=== PATIENT | male | born 1970 | race Caucasian/White ===

== ENCOUNTER 2019-09-01 00:59 | Inpatient (IN) | payer OTHER ==
[~2019-09-01] VITALS: Ht 172.7 cm; Wt 72.6 kg
--- NOTE | 2019-09-01 01:38 | NUR ---
ERMD AT BEDSIDE FOR HX AND PHYSICAL
[2019-09-01] MEDS ORDERED: MECLIZINE HCL 25 MG TABLET PO ONE (02:00)
[2019-09-01] MEDS ORDERED: MECLIZINE HCL 25 MG TABLET ONE (02:12)
[2019-09-01 02:17] LABS: BASOPHILS % (AUTO) 0.6 % (0.0-2.0); EOSINOPHILS # (AUTO) 0.1 K/uL (0.0-0.7); EOSINOPHILS % (AUTO) 1.5 % (0.0-7.0); HEMATOCRIT 45.6 % (36.7-47.1); HEMOGLOBIN 15.9 g/dL (12.5-16.3); LYMPHOCYTES # (AUTO) 0.9 K/uL (20.0-40.0); LYMPHOCYTES % (AUTO) 15.2 % (20.5-51.5); MEAN CORPUSCULAR HEMOGLOBIN 31.4 uug (23.8-33.4); MEAN CORPUSCULAR HGB CONC 35 g/dL (32.5-36.3); MEAN CORPUSCULAR VOLUME 90.3 fL (73.0-96.2); MONOCYTES # (AUTO) 0.7 K/uL (2.0-10.0); MONOCYTES % (AUTO) 11.8 % (0.0-11.0); NEUTROPHILS # (AUTO) 4.3 K/uL (1.8-8.9); NEUTROPHILS % (AUTO) 70.9 % (38.5-71.5); PLATELET COUNT (AUTO) 218 K/uL (152-348); RED BLOOD CELL COUNT(AUTO) 5.05 MIL/uL (4.06-5.63); WHITE BLOOD COUNT (AUTO) 6.1 K/uL (3.6-10.2)
[2019-09-01 02:21] LABS: CREATININE 0.8 mg/dL (0.6-1.3); POTASSIUM 3.8 mmol/L (3.5-5.1)
--- NOTE | 2019-09-01 02:25 | NUR ---
PT BROUGHT TO CT VIA [facility] BY [employer]ODUCTION [employer]NER
[2019-09-01 02:27] LABS: BILIRUBIN,DIRECT 0.1 mg/dL (0.0-0.2); BILIRUBIN,TOTAL 0.4 mg/dL (0.2-1.0); TOTAL PROTEIN, SERUM 7.3 g/dL (6.4-8.2)
--- NOTE | 2019-09-01 02:55 | NUR ---
NOTED ATAXIC GAIT TOWARDS RESTROOM FALL PRECAUTIONS NOTED
[2019-09-01 03:05] LABS: *BILIRUBIN,URIN NEGATIVE (NEGATIVE); *BLOOD, URINE 1+ (NEGATIVE); *CLARITY,URINE CLEAR (CLEAR); *COLOR,URINE YELLOW (YELLOW); *KETONES,URINE NEGATIVE (NEGATIVE); *UROBILINOGEN,URINE 0.2 E.U./dl (NORMAL); LEUKOCYTE ESTERASE ,URINE NEGATIVE (NEGATIVE); NITRITE, URINE NEGATIVE (NEGATIVE); UGLUCOSE NEGATIVE (NEGATIVE)
[2019-09-01 03:26] LABS: *AMPHETAMINE, URINE NEGATIVE (NEGATIVE); *BARBITURATE, URINE NEGATIVE (NEGATIVE); *CANNABINOID, URINE NEGATIVE (NEGATIVE); *COCCAINE, URINE NEGATIVE (NEGATIVE); *OPIATE, URINE NEGATIVE (NEGATIVE); *PHENCYCLIDINE SCREEN,URINE NEGATIVE (NEGATIVE)
[2019-09-01 03:28] LABS: RBC,URINE 20-50 /HPF (0-3)
--- NOTE | 2019-09-01 03:28 | NUR ---
kinsey(insurance) on the phone requesting clinicals and facesheet FAXED TO : [phone] states ok with verbal authorization
[2019-09-01 03:29] LABS: BACTERIA,URINE FEW /HPF (NONE SEEN); MUCUS,URINE MODERATE /LPF (0-FEW); SQUAMOUS EPITHELIAL CELL,UR FEW /HPF (NONE SEEN)
--- NOTE | 2019-09-01 03:47 | NUR ---
epic called, call for bed done
--- NOTE | 2019-09-01 04:01 | NUR ---
ISAAC ON THE PHONE W/ CORRIE OK TO ADMIT TO TELE RM [id number] DX: INTRACTABLE DIZZINESS
--- NOTE | 2019-09-01 04:06 | NUR ---
HAND OFF AND SBAR GIVEN TO MS. ALEX DANIELS
[2019-09-01] MEDS ORDERED: HYDROCODONE/APAP 5-325MG TABLET PO PRN (04:15)
[2019-09-01] MEDS ORDERED: ONDANSETRON 4 MG/2 ML VIAL IV PRN (04:15)
[2019-09-01] MEDS ORDERED: ACETAMINOPHEN 325 MG TABLET PO PRN (04:15)
[2019-09-01] MEDS ORDERED: Z GUARD REMEDY PASTE 57 GM TUBE TOP PRN (04:15)
[2019-09-01] MEDS ORDERED: MAGNESIUM HYDROXIDE 30 ML LIQUID UDC PO PRN (04:15)
[2019-09-01] MEDS ORDERED: MECLIZINE HCL 25 MG TABLET PO PRN (04:15)
--- NOTE | 2019-09-01 04:59 | NUR ---
ACC BY [facility] TRANSPORTED PT TO FLOOR VIA [facility]
[2019-09-01 05:22] VITALS: BP 124/88
--- NOTE | 2019-09-01 05:30 | NUR ---
ADMITTED, MALE CHIEF COMPLAINED OF DIZZINESS AND LOSS OF BALANCE,PATIENT REFUSED EVERYTHING,REFUSED TO WEAR GOWN. DOESNT WANT THE HEPLOCK TO BE STARTED.,TELEMETRY SINUS ELZA, RESTING COMFORTABLY
--- NOTE | 2019-09-01 08:00 | NUR ---
received pt. resting in bed alert oriented x4. pt. denies pain/ discomfort. pt. denies sob/ difficulty breathing. side rails padded for seizure precautions. safety measures in place. call light within reach. will continue to monitor pt.
[2019-09-01 11:41] VITALS: BP 115/64
[2019-09-01] MEDS ORDERED: SWABABLE VALVE TRANSFER SET EA MC ONE (12:21)
[2019-09-01] MEDS ORDERED: IOHEXOL 350 100 ML INFUS..BTL ONE (12:21)
[2019-09-01] MEDS ORDERED: IV NORMAL SALINE 250 ML IV ONE (12:21)
--- NOTE | 2019-09-01 13:26 | NUR ---
New IV inserted in R AC 20 gauge intact patent saline lock. Pt. going to CT of brain and carotid arteries. Picked up by xray and transported in wheel chair.
[2019-09-01 16:31] VITALS: BP 121/73
[2019-09-01] MEDS ORDERED: MELATONIN 3 MG TABLET PO SCH (21:00)
[2019-09-01] MEDS ORDERED: TRAZODONE 50 MG TABLET PO SCH (21:00)
[2019-09-01 21:24] VITALS: BP 125/76
[2019-09-02 00:16] VITALS: BP 123/82
[2019-09-02 04:47] VITALS: BP 114/69
--- NOTE | 2019-09-02 05:43 | NUR ---
pt rested well in between care; no acute distress ; assisted to meet needs; accompanied to Intermolecular machine last night; no dizziness observed; pt refused tylenol for low grade temp; continue to monitor; continue plan of care. temp rechecked = 98.1F orally
[2019-09-02 05:47] LABS: BASOPHILS % (AUTO) 0.7 % (0.0-2.0); EOSINOPHILS # (AUTO) 0.1 K/uL (0.0-0.7); EOSINOPHILS % (AUTO) 1.6 % (0.0-7.0); HEMATOCRIT 46.9 % (36.7-47.1); HEMOGLOBIN 16.1 g/dL (12.5-16.3); LYMPHOCYTES # (AUTO) 1.3 K/uL (20.0-40.0); LYMPHOCYTES % (AUTO) 26.4 % (20.5-51.5); MEAN CORPUSCULAR HEMOGLOBIN 31.3 uug (23.8-33.4); MEAN CORPUSCULAR HGB CONC 34 g/dL (32.5-36.3); MEAN CORPUSCULAR VOLUME 90.9 fL (73.0-96.2); MONOCYTES # (AUTO) 0.8 K/uL (2.0-10.0); MONOCYTES % (AUTO) 16.6 % (0.0-11.0); NEUTROPHILS # (AUTO) 2.8 K/uL (1.8-8.9); NEUTROPHILS % (AUTO) 54.7 % (38.5-71.5); PLATELET COUNT (AUTO) 201 K/uL (152-348); RED BLOOD CELL COUNT(AUTO) 5.16 MIL/uL (4.06-5.63); WHITE BLOOD COUNT (AUTO) 5.1 K/uL (3.6-10.2)
[2019-09-02 06:00] LABS: BILIRUBIN,TOTAL 0.4 mg/dL (0.2-1.0); MAGNESIUM 1.9 mg/dL (1.8-2.4); PHOSPHOROUS 3.5 mg/dL (2.5-4.9); POTASSIUM 3.8 mmol/L (3.5-5.1); TOTAL PROTEIN, SERUM 7.1 g/dL (6.4-8.2)
[2019-09-02 06:42] LABS: EOSINOPHILS % (MANUAL) 1 % (0-8); LYMPHOCYTES % (MANUAL) 26 % (20-40); MONOCYTES % (MANUAL) 18 % (2-10); NEUTROPHILS % (MANUAL) 55 % (42-75)
[2019-09-02 07:28] LABS: THYROID STIMULATING HORMONE 0.73 mIU/mL (0.358-3.740)
[2019-09-02] MEDS ORDERED: FERROUS SULFATE 325 MG TABEC PO SCH (09:00)
--- NOTE | 2019-09-02 09:44 | NUR ---
Received patient awake, alert, and responsive. Patient shows no signs or symptoms of distress at this time. Patient is resting comfortably in bed. Call light within reach. Bed set to lowest position. Will continue to monitor.
[2019-09-02 11:47] VITALS: BP 116/74
[2019-09-02 11:57] VITALS: BP 121/87
--- NOTE | 2019-09-02 13:25 | NUR ---
Patient is awake, alert and verbally responsive. No signs of distress noted. No SOB. No complain of Pain, Denies Chest Pain. Meclizine given x1 for Dizziness, patient with Order to be discharge today to [facility] ([facility]), Discharge Instruction given to patient and verbalized Understanding. All belongings was sent ans signed by patient. Removed IV site, security monitor and wrist band. patient was Picked up by [facility] for neuro personnel in stable condition.
== END 2019-09-02 13:25 | disposition home or self-care (01) | DRG 111 ==
LOC: ER 01:09 → MEDSURG3 04:19 → TELE3 05:22
PROVIDERS: ADMIT Hospitalist; ATTEND Nurse Practitioner Acute Care
DX: H81.10 Benign paroxysmal vertigo, unspecified ear (principal); G93.89 Other specified disorders of brain; S06.9X0S Unspecified intracranial injury without loss of consciousness, sequela; S02.0XXS Fracture of vault of skull, sequela; V03.99XS Pedestrian with other conveyance injured in collision with car, pick-up truck or van, unspecified whether traffic or nontraffic accident, sequela
CPT/HCPCS: 36415; 70030-TC; 70450; 70496; 80307; 83735; 84100; 84443; 85025; 85730; 87086; 93005; 93307; A4663; G0378; J7050; J8597; Q9967